=== PATIENT | female | born 1960 | race Caucasian/White ===

== ENCOUNTER 2020-04-14 11:42 | Day surgery (SDC) | payer BC ==
[~2020-04-14] VITALS: Ht 160 cm; Wt 72.5 kg
[2020-04-14] VITALS (18 sets, daily range): BP systolic 122–155; BP diastolic 76–107
[~2020-04-14 11:42] MED LIST: CITA20TA28 PO; NORCO10T PO
[2020-04-14] MEDS ORDERED: normal saline 1000ml 1,000 ML IV SCH (12:35)
[2020-04-14] MEDS ORDERED: LISI10TA27 PO (12:35)
[2020-04-14] MEDS ORDERED: VITAMIN D3 (12:35)
[2020-04-14] MEDS ORDERED: ALLO300T8 PO (12:35)
[2020-04-14] MEDS ORDERED: MAGIC MOUTHWASH (12:35)
[2020-04-14] MEDS ORDERED: PROC10TA10 PO (12:35)
[2020-04-14] MEDS ORDERED: LIDO30CR23 (12:35)
[2020-04-14] MEDS ORDERED: BUPR300T86 PO (12:35)
[2020-04-14] MEDS ORDERED: ONDA8TAB65 PO (12:35)
[2020-04-14 12:41] LABS: BASOPHILS % (AUTO) 0.5 % (0-1); EOSINOPHILS # (AUTO) 0.1 X10'3 (0-0.9); EOSINOPHILS % (AUTO) 1.4 % (0-6); HEMATOCRIT 31.7 % (35.0-45.0); HEMOGLOBIN 10.4 g/dl (12.0-16.0); LYMPHOCYTES # (AUTO) 1.4 X10'3 (1.1-4.8); LYMPHOCYTES % (AUTO) 15.1 % (21-51); MEAN CORPUSCULAR HEMOGLOBIN 28.2 PG (27.0-31.0); MEAN CORPUSCULAR HGB CONC 32.8 g/dL (33.0-36.5); MEAN CORPUSCULAR VOLUME 85.9 FL (78-98); MEAN PLATELET VOLUME 7.2 FL (7.4-10.4); MONOCYTES # (AUTO) 1.1 X10'3 (0-0.9); MONOCYTES % (AUTO) 11.3 % (2-12); NEUTROPHILS # (AUTO) 6.7 X10'3 (1.8-7.7); NEUTROPHILS % (AUTO) 71.7 % (42-75); PLATELET COUNT 415 X10'3 (140-440); RED BLOOD COUNT 3.69 X10'6 (4.20-5.60); RED CELL DISTRIBUTION WIDTH 15.3 % (11.5-14.5); WHITE BLOOD COUNT 9.4 X10'3 (4.5-11.0)
[2020-04-14 12:53] LABS: ALBUMIN 3.3 G/DL (3.4-5.0); ANION GAP 11 (8-16); BLOOD UREA NITROGEN 9 MG/DL (7-18); BUN/CREATININE RATIO 9.6 (6.6-38.0); CALCIUM 9.8 MG/DL (8.5-10.1); CHLORIDE 100 MMOL/L (99-107); CREATININE 0.94 MG/DL (0.40-0.90); GLUCOSE 86 MG/DL (70-104); POTASSIUM 3.8 MMOL/L (3.5-5.1); SODIUM 137 MMOL/L (135-145); TOTAL CARBON DIOXIDE 25.7 MMOL/L (24-32); eGFR 61 ML/MIN
[2020-04-14] MEDS ORDERED: fentaNYL/PF 50MCG/1 ML 2ML syringe ONE (15:21)
--- NOTE | 2020-04-14 16:25 | NUR ---
Called Dr. Qureshi to determine pt discharge time. stated pt could d/c between 1830 and 1900.
== END 2020-04-14 18:30 | disposition home or self-care (01) ==
LOC: SSTAY O 11:42
PROVIDERS: ATTEND Radiology Vascular & Interventional Radiology
DX: R59.0 Localized enlarged lymph nodes (principal); C83.33 Diffuse large B-cell lymphoma, intra-abdominal lymph nodes; Z20.822 Contact with and (suspected) exposure to COVID-19; Z87.891 Personal history of nicotine dependence; Z72.89 Other problems related to lifestyle
CPT/HCPCS: 36415; 38505; 77012; 80048; 85025; 87635; C9803; J3010